=== PATIENT | male | born 1955 | race Caucasian/White ===

== ENCOUNTER 2016-06-27 17:34 | Observation (INO) | payer OTHER ==
[~2016-06-27] VITALS: Ht 182.9 cm; Wt 142.1 kg
[2016-06-27] VITALS (7 sets, daily range): BP systolic 74–161; BP diastolic 46–81; PULSE 62–84; RESP 14–21; O2SAT 93–99
[2016-06-27 17:52] LABS: BASOPHILS % (AUTO) 0.6 % (0-3); EOSINOPHILS % (AUTO) 4.9 % (0-5); MONOCYTES % (AUTO) 10.7 % (4-12); Mean Corpuscular Hemoglobin 28.2 pg (27.0-35.0); Mean Corpuscular Volume 83.1 fL (81-100); NEUTROPHILS % (AUTO) 58.7 % (40-74); Platelet Count 209 bil/L (150-400)
--- NOTE | 2016-06-27 18:07 | ED.REPORT ---
HPI-Dyspnea / Wheezing Date of Service Jun 27, 2016 ED Provider: Sergio Magdaleno DO A 60 year old male with a history of previously smoking and possible COPD is referred to the ED from Urgent Care due to a productive cough and shortness of breath. The pt has been experiencing these symptoms for six days, though this is a frequent condition. Diaphoresis was noted in Urgent Care, and the pt was given aspirin and a DuoNeb. The pt smoked for many years before quitting. He denies any history of blood clot, recent surgery, or recent travel. Nursing Notes Stated Complaint: COUGH Chief Complaint: Respiratory Distress Nursing Notes Reviewed: Yes Allergies: Coded Allergies: No Known Allergies (Unverified , 06/27/16) Scheduled Aspirin Chew (Aspirin Chew) 81 Mg Chew 81 MG PO DAILY Dextroamphetamine/Amphetamine ER (Adderall XR) 30 Mg Capsule 30 MG PO BIDWM Escitalopram Oxalate (Escitalopram Oxalate) 10 Mg Tablet 10 MG PO DAILY Fexofenadine (Fexofenadine) 180 Mg Tablet 180 MG PO DAILY Guaifenesin (Mucinex) 600 Mg Tablet.er 600 MG PO DAILYWD Omeprazole (Omeprazole) 20 Mg Capsule.dr 20 MG PO QAM General Time Seen by MD: 18:06 Chief Complaint Cough Hx Obtained From: Patient Arrived By: Walk-in Sudden in Onset?: No Onset Occurred: 6 days ago Symptom Duration: Since onset Recent Healthcare: No recent hospitalization, Recent doctor visit Similar Sx Previous: Yes Past Medical History Past Medical History possible COPD Past Surgical History nasal surgery Smoking History Unknown if Ever Smoker Social History Alcohol Use: "Social" Other Social History: Good social support, Ambulatory Status Independent Review of Systems Respiratory: Reports: Prod cough, clear, Shortness of breath Cardiovascular: Denies: Chest pain Musculoskeletal: Denies: Back pain, Neck pain Skin: Reports Diaphoresis, Denies Rash Complete sys rev & neg: except as marked. GI: Denies: Abdominal pain Physical Exam Initial Vital Signs Vital Signs (First) Date Time Temp Pulse Resp B/P Pulse Ox O2 Delivery O2 Flow Rate FiO2 06/27/16 17:38 37.3 68 14 139/71 93 Room Air Initial VS: Reviewed General/Constitutional: Awake, Alert, No acute distress Appearance / Presentation: Positive: Obese Neck: Atraumatic, Supple, Full range of motion Respiratory / Chest: Atraumatic, Breath sounds = bilat, No respiratory distress inspiratory and expiratory wheezing Cardiovascular: Heart rate NL, Regular rhythm, Heart sounds NL ENT: Atraumatic, Airway patent, Mucous membranes moist Abdomen: Atraumatic, Soft, Non-tender Back: Atraumatic, Full range of motion Lower Extremity / Pelvis / MS: Atraumatic, Full range of motion, No edema Skin: Atraumatic, Color NL, No rash, Warm forehead is diaphoretic Neurologic: Oriented X3, Speech NL, No motor deficits, No sensory deficits Head / Eyes: Atraumatic, Normocephalic, PERRL, EOMI Upper Extremity / MS: Atraumatic, Full range of motion, No edema Psychiatric: Affect NL, Mood NL Interpretation & Diagnostics Interpretation & Diagnostics: Angiography CT: IMPRESSION: No pulmonary embolism. Widespread bilateral ill-defined small nodularity and groundglass attenuation most likely representing infectious/inflammatory etiology. Differential includes aspiration pneumonitis, atypical/viral pneumonia, among other possibilities. Recommend followup with noncontrast chest CT after treatment to exclude early metastatic pulmonary nodules. Borderline enlarged bilateral hilar and mediastinal lymph nodes, nonspecific finding. Recommend clinical correlation. Incidental cholelithiasis. Dictated by: Saúl Diez M.D. on 06/27/2016 at 20:14 Approved by: Súal Diez M.D. on 06/27/2016 at 20:22 Lab Results Interpretation Result Diagram: 06/27/16 1741 06/27/16 1741 Test 06/27/16 17:41 06/27/16 18:36 White Blood Count 4.9th/mm3 (3.8-10.1) Red Blood Count 5.43mil/mm3 (4.40-5.80) Hemoglobin 15.3g/dL (13.8-17.2) Hematocrit 45.1% (41.0-50.0) Mean Corpuscular Volume 83.1fL (81-100) Mean Corpuscular Hemoglobin 28.2pg (27.0-35.0) Mean Corpuscular Hemoglobin Concent 33.9% (32.0-37.0) Red Cell Distribution Width 13.4% (12.3-15.4) Platelet Count 209bil/L (150-400) Neutrophils (%) (Auto) 58.7% (40-74) Lymphocytes (%) (Auto) 24.9% (14-46) Monocytes (%) (Auto) 10.7% (4-12) Eosinophils (%) (Auto) 4.9% (0-5) Basophils (%) (Auto) 0.6% (0-3) Sodium Level 137mEq/L (134-144) Potassium Level 4.0mEq/L (3.5-5.2) Chloride Level 98mEq/L (97-108) Carbon Dioxide Level 22mmol/L (18-29) Blood Urea Nitrogen 23mg/dL (8-27) Creatinine 0.86mg/dL (0.76-1.27) Estimat Glomerular Filtration Rate 96mL/min (>59) Glucose Level 162mg/dL (60-99) Calcium Level 9.2mg/dL (8.5-10.1) Magnesium Level 1.9mg/dL (1.6-2.6) Total Bilirubin 0.8mg/dL (0.0-1.2) Aspartate Amino Transf (AST/SGOT) 33U/L (0-50) Alanine Aminotransferase (ALT/SGPT) 26U/L (0-44) Alkaline Phosphatase 91U/L (25-160) Troponin T < 0.010ug/L (0.0-0.011) Total Protein 7.4g/dL (6.4-8.4) Albumin 4.2g/dL (3.4-5.0) D-Dimer 0.7mg/L (<0.50) Pro-B-Type Natriuretic Peptide 47.11pg/mL (0-210) Procalcitonin 0.16ng/mL (0.00-0.08) Pulse Oximetry Interpretation Pulse Oximetry Interpretation: 93% on room air ECG Interpretation ECG Interpretation: normal sinus rhythm with a rate of 67 Time: 17:48 Interpreted by: ED physician X-Ray Chest Interpretation Chest Xray Interpretation: IMPRESSION: No acute disease Dictated by: Saúl Diez M.D. on 06/27/2016 at 19:17 Approved by: Saúl Diez M.D. on 06/27/2016 at 19:18 Interpretation / Wet Read by: Interpret - Radiologist Re-Eval/Medical Decision Re-Evaluation/Progress #1: Time of Eval: 19:19 Patient Status: Condition improved Re-Evaluation/Progress Note: Pt rechecked, who is resting comfortably. He is informed of the plan for a CT scan. The pt agrees with the plan. Re-Evaluation/Progress #2: Time of Eval: 20:33 Re-Evaluation/Progress Note: Pt rechecked, who is still wheezing. His oxygen sat is 90. CT results are discussed. Re-Evaluation/Progress #3: Time of Eval: 20:56 Re-Evaluation/Progress Note: Pt rechecked, who is diaphoretic and continues wheezing. The plan for admission is discussed. The pt understands and agrees with the plan. All questions are addressed at this time. Consultation : Referral / Consult Name: Cade Renee MD Consulted With: Hospitalist Call Returned at: 21:48 Paralegal Instructor: Agrees with eval, Agrees with plan, Accepts admit Note: Spoke with Dr. Renee, hospitalist, regarding pt's case. Dr. Renee agrees with the evaluation and agrees to admit the pt. Counseled Regarding: Diagnosis, Lab results, Need for admission Discharge & Departure Impression: Primary Impression: Pneumonia Pneumonia type: due to unspecified organism Laterality: bilateral Lung location: unspecified part of lung Qualified Code: J18.9 - Pneumonia, unspecified organism Additional Impression: Bronchospasm Disposition: ADMITTED TO HOSPITAL Discharge Condition All VS Reviewed: Yes Condition: Stable Referrals: [facility] Trung Attestation Portions of this note were transcribed by Kashif Casiano. I, Dr. Magdaleno personally performed the history, physical exam and medical decision-making; I reviewed and confirmed the accuracy of the information in the transcribed note. Signed by: Trung Dawson, 06/27/2016 and 2153. copies to: [facility] Sergio Magdaleno DO Jun 27, 2016 18:07 KASHIF CASIANO Jun 27, 2016 18:15
[2016-06-27 18:32] LABS: Magnesium 1.9 mg/dL (1.6-2.6)
[2016-06-27 18:33] LABS: TROPONIN T < 0.010 ug/L (0.0-0.011)
[2016-06-27] MEDS ORDERED: MethylprednisoLONE Sodium Succinate 62.5 mg/mL 2 mL Inj IVPUSH ONE (18:40)
[2016-06-27] MEDS ORDERED: Albuterol-Ipratropium 3 mL Inhalation Solution NEB ONE (18:40)
--- NOTE | 2016-06-27 19:19 | DRSVH ---
PROCEDURE: X-RAY CHEST, TWO VIEWS ([id number]) INDICATIONS: shortness of breath TECHNIQUE: 2 views of the chest were acquired. COMPARISON: None. FINDINGS: Surgical changes and devices: None. Lungs and pleura: No pleural effusions or pneumothorax. Lungs are clear. Mediastinum: Mediastinal contours are normal. Heart size is normal. Bones and chest wall: No suspicious bony abnormalities. Soft tissues appear unremarkable. IMPRESSION: No acute disease Dictated by: Saúl Diez M.D. on 06/27/2016 at 19:17 Approved by: Saúl Diez M.D. on 06/27/2016 at 19:18
--- NOTE | 2016-06-27 20:22 | DRSVH ---
PROCEDURE: CT ANGIO CHEST PULMONARY EMBOLISM ([id number]) INDICATIONS: respiratory distress, elevated ddimer TECHNIQUE: After the administration of intravenous contrast, 2 mm thick sections acquired from the pulmonary api guerline to the posterior costophrenic angles. 3-dimensional maximum intensity projection (MIP) coronal a nd sagittal reformats were then acquired through the thorax. For radiation dose reduction, the follo wing was used: automated exposure control, adjustment of mA and/or kV according to patient size. COMPARISON: None. FINDINGS: Image quality: Excellent. Pulmonary arteries: Pulmonary arteries are normal in size, and demonstrate no intraluminal filling d efects to suggest central pulmonary embolism. Lungs and pleura: Bilateral widespread ill-defined small nodularity and groundglass opacities through out the lung bases in addition to the superior segments of the left and right lower lobes. No definit e focal consolidation identified. Central airways appear grossly patent. No pleural effusion or pneum othorax. There is central airway thickening Mediastinum: Heart size is normal, without pericardial effusion. Shotty bilateral hilar lymph nodes , and subcarinal borderline enlarged nodes, nonspecific. Thoracic aorta is normal in caliber and enhancement. Esophagus is normal in caliber, without hiatal hernia. Bones and chest wall: No suspicious bony lesions. Ribs and thoracic spine appear intact throughout. Thyroid gland negative. No axillary or supraclavicular adenopathy. Abdomen: Incidentally noted multiple less than 5 mm gallstones without other CT evidence of acute cho lecystitis. IMPRESSION: No pulmonary embolism. Widespread bilateral ill-defined small nodularity and groundglass attenuation most likely representin g infectious/inflammatory etiology. Differential includes aspiration pneumonitis, atypical/viral pneu monia, among other possibilities. Recommend followup with noncontrast chest CT after treatment to exc lude early metastatic pulmonary nodules. Borderline enlarged bilateral hilar and mediastinal lymph nodes, nonspecific finding. Recommend clini cheryl correlation. Incidental cholelithiasis. Dictated by: Saúl Diez M.D. on 06/27/2016 at 20:14 Approved by: Saúl Diez M.D. on 06/27/2016 at 20:22
[2016-06-27] MEDS ORDERED: cefTRIAXone Inj 2,000 MG in Dextrose 5% Minibag Plus 50 ML IV ONE (20:30)
[2016-06-27] MEDS ORDERED: Albuterol 2.5 mg/3 mL Inhalation Solution NEB ONE ×2 (21:01)
[2016-06-27] MEDS ORDERED: Alum-Mag Hydrox-Simeth 30 mL Suspension PO PRN (22:25)
[2016-06-27] MEDS ORDERED: Ondansetron 2 mg/mL 2 mL Inj IVPUSH PRN (22:25)
[2016-06-27] MEDS ORDERED: Albuterol-Ipratropium 3 mL Inhalation Solution NEB PRN (22:25)
[2016-06-27] MEDS ORDERED: Polyethylene Glycol (PEG) 17 Gm Powder PO PRN (22:25)
[2016-06-27] MEDS ORDERED: AMPH30CA5 PO (22:40)
[2016-06-27] MEDS ORDERED: FEXO-106 PO (22:41)
[2016-06-27] MEDS ORDERED: ESCI10TA52 PO (22:41)
[2016-06-27] MEDS ORDERED: ESCI5SOL4 PO (22:41)
[2016-06-27] MEDS ORDERED: ASPI81TA3 PO (22:42)
[2016-06-27] MEDS ORDERED: GUAI600T2 PO (22:42)
[2016-06-27] MEDS ORDERED: OMEP20CA11 PO (22:42)
[2016-06-28] VITALS (9 sets, daily range): BP systolic 163–191; BP diastolic 53–86; PULSE 67–82; RESP 16–22; O2SAT 91–98
[2016-06-28] MEDS ORDERED: 0.9% Sodium Chloride 1,000 ML IV ONE (00:45)
[2016-06-28] MEDS: 0.9% Sodium Chloride 1,000 ML IV SCH ×2 (02:35→12:04)
--- NOTE | 2016-06-28 04:18 | PCM.HPMED ---
Subjective Date of Service Jun 27, 2016 Primary Provider: Admitting Physician: Cade Renee MD Primary Care Physician: Jaycob Love DO Attending Physician: Cade Renee MD Admit Status: From the Emergency Department Chief Complaint: Shortness of breath, productive cough History of Present Illness: 60 year-old gentleman with history of seasonal allergies and extensive smoking history presents with diaphoresis, rigors, productive cough and SOB. This 60 year-old gentleman w/ 90 pack-year history (who is without a formal diagnosis of COPD) was in his normal state of health up until six days ago when he began to develop a cough, odynophagia, rhinorrhea, headache, and diffuse myalgias. The patient originally believed that he had influenza and chose to attempt convalescence with bedrest. Yesterday (06/26/2016), the patient noticed increased chills, rigors, wheezing, and productive cough. At the insistence of his , he reported to Urgent Care where he was advised to seek treatment at [facility]. In the Emergency Department, the patient was found to be wheezing, SOB, diaphoretic, and had a pulse oximetry of 93% on room air. CXR showed no acute disease process. A d-dimer was positive at 0.7. CTA chest did not reveal a pulmonary embolus but did show widespread bilateral ill-defined small nodularity and groundglass attenuation most likely representing infectious/ inflammatory etiology. Differential includes aspiration pneumonitis, atypical/ viral pneumonia and incidental cholelithiasis. The patients pulse oximetry improved to 99% after treatment with IV methylprednisolone and Duonebs; however , he is admitted for continued wheezing, SOB, and treatment of underlying pulmonary disease. The patient lives locally and denies any recent travel. His [id number] involves travel to many facilities and homes where he notes many individuals are displaying signs of flu-like illness. He denies any previous exposure to tuberculosis. The patient states that he is an active patient of Dr. Emery, who prescribes him antibiotics for recurrent cellulitis but is not currently active. Review of Systems: A comprehensive review of systems was conducted with the patient and found to be negative except as above in the History of Present Illness. Allergies Coded Allergies: No Known Allergies (Unverified , 06/27/16) Home Medications 1. Adderall 30 mg daily 2. Escitalopram 10 mg daily 3. Clindamycin 150 mg daily 4. Aspirin 81 mg 5. Olga 180 mg daily PMH 1. ADHD 2. Seasonal allergies 3. Lower leg cellulitis 4. Depression Surgical History 1. 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 External ears without defect. Pupils equal, round, and reactive to light and accommodation. Anicteric sclerae, moist conjunctivae, and no lid lag. Oropharynx free of erythema and cobble stoning with moist mucosa. Neck: Supple with full range of motion. No jugular venous distension. No lymphadenopathy or thyromegaly. Cardiovascular: Regular rate and rhythm with no murmurs, rubs, or gallops appreciated Pulmonary: Diffuse inspiratory and expiratory wheezes, or rhonchi. Normal respiratory effort with no use of accessory muscles. Abdomen: Bowel tones present. Soft, nontender,protuberant, nondistended. No hepatosplenomegaly or masses appreciated. Extremities: No clubbing, cyanosis, edema, or lymphadenopathy appreciated. Skin: Normal temperature, turgor, and texture; no rash, ulcers, or subcutaneous nodules appreciated. Neurological: Cranial nerves grossly intact. Normal muscle strength, tone, and bulk. No gait impairment. Psychiatric: Normal mood and affect. Alert and oriented to person, place, and time. Lab and Diagnostics Result Diagram: 06/27/16174006/27/161740 X-Rays, CTs and MRIs PROCEDURE: CT ANGIO CHEST PULMONARY EMBOLISM ([id number]) INDICATIONS: respiratory distress, elevated ddimer TECHNIQUE: After the administration of intravenous contrast, 2 mm thick sections acquired from the pulmonary apices to the posterior costophrenic angles. 3-dimensional maximum intensity projection (MIP) coronal and sagittal reformats were then acquired through the thorax. For radiation dose reduction, the following was used: automated exposure control, adjustment of mA and/or kV according to patient size. COMPARISON: None. FINDINGS: Image quality: Excellent. Pulmonary arteries: Pulmonary arteries are normal in size, and demonstrate no intraluminal filling defects to suggest central pulmonary embolism. Lungs and pleura: Bilateral widespread ill-defined small nodularity and groundglass opacities throughout the lung bases in addition to the superior segments of the left and right lower lobes. No definite focal consolidation identified. Central airways appear grossly patent. No pleural effusion or pneumothorax. There is central airway thickening Mediastinum: Heart size is normal, without pericardial effusion. Shotty bilateral hilar lymph nodes, and subcarinal borderline enlarged nodes, nonspecific. Thoracic aorta is normal in caliber and enhancement. Esophagus is normal in caliber, without hiatal hernia. Bones and chest wall: No suspicious bony lesions. Ribs and thoracic spine appear intact throughout. Thyroid gland negative. No axillary or supraclavicular adenopathy. Abdomen: Incidentally noted multiple less than 5 mm gallstones without other CT evidence of acute cholecystitis. IMPRESSION: No pulmonary embolism. Widespread bilateral ill-defined small nodularity and groundglass attenuation most likely representing infectious/inflammatory etiology. Differential includes aspiration pneumonitis, atypical/viral pneumonia, among other possibilities. Recommend followup with noncontrast chest CT after treatment to exclude early metastatic pulmonary nodules. Borderline enlarged bilateral hilar and mediastinal lymph nodes, nonspecific finding. Recommend clinical correlation. Incidental cholelithiasis. Dictated by: Saúl Diez M.D. on 06/27/2016 at 20:14 PROCEDURE: X-RAY CHEST, TWO VIEWS ([id number]) IMPRESSION: No acute disease Dictated by: Saúl Diez M.D. on 06/27/2016 at 19:17 Assessment & Plan 60 year-old gentleman with history of seasonal allergies and extensive smoking history presents with diaphoresis, rigors, productive cough and SOB found to have. 1. Probable atypical pneumonia, present on admission, acute - CURB-65 score of 1 shows 2.7% 30 day mortality, PSI/Port score (without ABG values) Shows Risk Class II with less than 1% mortality - Procalcitonin 0.16, repeat in a.m. - Methylpred Sodium and DuoNeb in ED, Continue DuoNeb QID while awake - Prednisone 40 mg daily - Ceftriaxone 2 g IV every 24 hours - Azithromycin 500 mg by mouth daily - Continue Mucinex - Rapid flu in the emergency department negative - Respiratory viral PCR, urine strep pneumo and Legionella antigens, sputum culture, MRSA nasal screen ordered. - Recommend follow-up with non contrast CT in outpatient setting once pneumonia is cleared to rule out malignancy as cause for CT findings. 2. Lactic acidosis, present on admission, acute - Initial lactic acid 4.1, trending every 2 hours - 1 L bolus normal saline given, and normal saline continuous effusion 100 mL per hour - Oxygen by nasal cannula 3. History of lower leg cellulitis, not currently active - Patient prescribed prophylactic dose of clindamycin by Dr. Emery of infectious disease, he has not been taking this recently. - After antibiotic treatment for pneumonia is complete patient should resume this medication. Chronic conditions Seasonal Allergies - Continue Olga like medication Depression - Continue escitalopram daily ADHD - Continue Adderall daily Musculoskeletal pain - Continue Naproxen when necessary Acetaminophen or naproxen for mild pain when necessary. Bowel regimen Senna and MiraLAX PRN. Zofran when necessary for nausea and vomiting. Patient lives with in [place], [place] and will likely return home upon discharge. Patient is admitted under inpatient status with expected length of stay greater than 2 midnights due to severity of presenting symptoms, risk of adverse event, and complexity of treatment plan. Pain Evaluation: Adequate Pain Control GI Prophylaxis: Not indicated VTE Prophylaxis: Sub-Q Enoxaparin VTE Mechanical Devices: Intermittant Pneumatic CD Resuscitation Status: CPR: Attempt Resuscitation Attending Statement The patient was seen and examined together with Dr. Martin on 06/27 and I agree with the history, exam and plan as outlined in the note above. copies to: Jaycob Love Erika R DO Jun 27, 2016 22:21 Cade Renee MD Jun 28, 2016 05:18
--- NOTE | 2016-06-28 05:00 | NUR ---
Admit note: Pt arrived from the ER via wheelchair. Ambulating in room independently. Reports shortness of breath with activity, RA SpO2 was 92%; denies SOB at rest. Alert and oriented x3. Critical Lactic came back at 4.1. MD notified, pt placed on tele, SR 70-80s. 1L NS fluid bolus administered, NS at 100mls/hr. Pt was placed on 2L of O2. Lactic did increase to 4.9, MD aware; next draw lactic did start to decline. Pt oriented to room and call light. Using call light for needs.
[2016-06-28] MEDS: predniSONE 20 mg Tablet PO SCH (08:57)
[2016-06-28] MEDS: Pantoprazole 40 mg ER24 Tablet PO SCH (08:57)
[2016-06-28] MEDS: Amphetamines (Mixed) XR 10 mg ER24 Capsule PO SCH ×2 (09:17→17:08)
--- NOTE | 2016-06-28 10:55 | PCM.PNMED ---
Subjective Date of Service Jun 28, 2016 Subjective Reports he is less SOB this morning, but still wheezy. Denies any fevers, CP, or dizziness. Exam Vital Signs Vital Sign - Last Date Time Temp Pulse Resp B/P Pulse Ox O2 Delivery O2 Flow Rate FiO2 06/28/16 05:15 36.6 67 18 163/86 96 Nasal Cannula 2.00 Intake and Output 06/27/16 06/27/16 06/28/16 Cumulative From/Thru 15:00 23:00 07:00 06/27/16 17:38 - 06/28/16 06:25 Intake Total 970 ml 970 ml Output Total 600 ml 600 ml Balance 370 ml 370 ml Intake Oral 920 ml 920 ml IV Total 50 ml 50 ml Output Urine Total 600 ml 600 ml # Bowel Movements 0 0 Exam General: No acute distress, well-developed, well-nourished, appropriately interactive HEENT: PERRLA Cardiovascular: Regular rate and rhythm with no murmurs, rubs, or gallops appreciated Pulmonary: Moderate diffuse wheezing bilaterally, audible upper resp wheezing Abdomen: Bowel tones present. Soft, nontender,protuberant, nondistended. No hepatosplenomegaly or masses appreciated. Extremities: No clubbing, cyanosis, edema, or lymphadenopathy appreciated. Skin: Normal temperature, turgor, and texture; no rash, ulcers, or subcutaneous nodules appreciated. Neurological: Cranial nerves grossly intact. Non focal exam. Psychiatric: Normal mood and affect. Alert and oriented to person, place, and time. IVs and Medications Medications Reviewed: Medications were reviewed in detail Lab and Diagnostics Result Diagram: 06/27/16174006/27/161740 X-Rays, CTs and MRIs PROCEDURE: CT ANGIO CHEST PULMONARY EMBOLISM ([id number]) INDICATIONS: respiratory distress, elevated ddimer TECHNIQUE: After the administration of intravenous contrast, 2 mm thick sections acquired from the pulmonary apices to the posterior costophrenic angles. 3-dimensional maximum intensity projection (MIP) coronal and sagittal reformats were then acquired through the thorax. For radiation dose reduction, the following was used: automated exposure control, adjustment of mA and/or kV according to patient size. COMPARISON: None. FINDINGS: Image quality: Excellent. Pulmonary arteries: Pulmonary arteries are normal in size, and demonstrate no intraluminal filling defects to suggest central pulmonary embolism. Lungs and pleura: Bilateral widespread ill-defined small nodularity and groundglass opacities throughout the lung bases in addition to the superior segments of the left and right lower lobes. No definite focal consolidation identified. Central airways appear grossly patent. No pleural effusion or pneumothorax. There is central airway thickening Mediastinum: Heart size is normal, without pericardial effusion. Shotty bilateral hilar lymph nodes, and subcarinal borderline enlarged nodes, nonspecific. Thoracic aorta is normal in caliber and enhancement. Esophagus is normal in caliber, without hiatal hernia. Bones and chest wall: No suspicious bony lesions. Ribs and thoracic spine appear intact throughout. Thyroid gland negative. No axillary or supraclavicular adenopathy. Abdomen: Incidentally noted multiple less than 5 mm gallstones without other CT evidence of acute cholecystitis. IMPRESSION: No pulmonary embolism. Widespread bilateral ill-defined small nodularity and groundglass attenuation most likely representing infectious/inflammatory etiology. Differential includes aspiration pneumonitis, atypical/viral pneumonia, among other possibilities. Recommend followup with noncontrast chest CT after treatment to exclude early metastatic pulmonary nodules. Borderline enlarged bilateral hilar and mediastinal lymph nodes, nonspecific finding. Recommend clinical correlation. Incidental cholelithiasis. Dictated by: Saúl Diez M.D. on 06/27/2016 at 20:14 PROCEDURE: X-RAY CHEST, TWO VIEWS ([id number]) IMPRESSION: No acute disease Dictated by: Saúl Diez M.D. on 06/27/2016 at 19:17 Assessment & Plan 60 year-old gentleman with history of seasonal allergies and extensive smoking history presents with diaphoresis, rigors, productive cough and SOB found to have. 1. Probable atypical pneumonia, present on admission, acute - CURB-65 score of 1 shows 2.7% 30 day mortality, PSI/Port score (without ABG values) Shows Risk Class II with less than 1% mortality - Procalcitonin 0.16, repeat in a.m. - Methylpred Sodium and DuoNeb in ED, Continue DuoNeb QID while awake - Prednisone 40 mg daily - Ceftriaxone 2 g IV every 24 hours abd Azithromycin 500 mg by mouth daily started by admission team. Will discontinue if viral. - Continue Mucinex - Rapid flu in the emergency department negative - Respiratory viral PCR positive for Human Metapneumovirus 06/28 2. Lactic acidosis, present on admission, acute - Initial lactic acid 4.1, trending every 2 hours - 1 L bolus normal saline given, and normal saline continuous effusion 100 mL per hour - Oxygen by nasal cannula - Improving, continue to monitor until resolution 3. History of lower leg cellulitis, not currently active - Patient prescribed prophylactic dose of clindamycin by Dr. Emery of infectious disease, he has not been taking this recently. - After antibiotic treatment for pneumonia is complete patient should resume this medication. Chronic conditions Seasonal Allergies - Continue Olga like medication Depression - Continue escitalopram daily ADHD - Continue Adderall daily Musculoskeletal pain - Continue Naproxen when necessary Acetaminophen or naproxen for mild pain when necessary. Bowel regimen Senna and MiraLAX PRN. Zofran when necessary for nausea and vomiting. Patient lives with in [place], [place] and will likely return home upon discharge. Likely discharge home tomorrow if improving Pain Evaluation: Adequate Pain Control GI Prophylaxis: Not indicated VTE Prophylaxis: Sub-Q Enoxaparin VTE Mechanical Devices: Intermittant Pneumatic CD Resuscitation Status: CPR: Attempt Resuscitation Time spent 25 minutes Attending Statement I have seen and evaluated patient at bedside in addition to directly supervising care provided by resident physician. I agree with above documentation. Kevin Mendez DO Jun 28, 2016 07:59 Yeison Bledsoe DO Jun 28, 2016 14:15
--- NOTE | 2016-06-28 12:33 | NUR ---
Social Work-initial assessment: Data:EMR Reviewed. Pt is a 60 y/o male who was admitted on 06/27/16 for multilobar pneumonia per H&P. Pt's [place] is [employer] [place] and PCP is Jaycob Love DO. EMR reviewed. SW met with pt at bedside to discuss discharge planning, SW role explained. Pt is alert and oriented x3. Pt resides at home with in [place] where he remains independent with ADLs. Pt drives and does not use any DME. Pt has no HH or SNF history. SW discussed DPOA/ advanced directive, pt states that he has completed paperwork, SW requested a copy to be brought into the hospital. Per RN notes, pt has been up independent in his room. Pt's to provide transport home at discharge. SW provided phone number and plan on white board in room. No anticipated discharge needs. SW will continue to follow if needs arise. Assessment:Pt who is independent at baseline. Plan:Pt to discharge home when medically stable via POV. No anticipated discharge needs. SW will continue to follow if needs arise. ADWOA Winn
[2016-06-28] MEDS: Albuterol-Ipratropium 3 mL Inhalation Solution NEB SCH ×2 (15:37→19:48)
[2016-06-28] MEDS ORDERED: guaiFENesin 600 mg ER12 Tablet PO SCH (17:30)
[2016-06-28] MEDS ORDERED: Labetalol 5 mg/mL 4 mL Inj IVPUSH PRN (18:05)
--- NOTE | 2016-06-28 18:48 | NUR ---
Activity/shift note Pt remains on 2L via NC, denies any SOB/distress. CPOX at bedside has revealed 02 in high 90's all day. Pt ind with activity and tolerates well. He denies any pain/discomfort. Remains on isolation (droplet/contact), MRSA pending. Bed in lowest, locked position and call light in reach.
[2016-06-28] MEDS ORDERED: cefTRIAXone Inj 2,000 MG in Dextrose 5% Minibag Plus 50 ML IV SCH (21:00)
[2016-06-29] MEDS ORDERED: Albuterol-Ipratropium 3 mL Inhalation Solution NEB PRN (03:15)
[2016-06-29 03:29] VITALS: PULSE 70; RESP 16; O2SAT 96
[2016-06-29 05:56] VITALS: BP 120/66; PULSE 67; RESP 20; O2SAT 99
[2016-06-29] MEDS: Pantoprazole 40 mg ER24 Tablet PO SCH (06:21)
[2016-06-29 06:54] LABS: BASOPHILS % (AUTO) 0.4 % (0-3); EOSINOPHILS % (AUTO) 0.7 % (0-5); Mean Corpuscular Hemoglobin 28.1 pg (27.0-35.0); Mean Corpuscular Volume 84.5 fL (81-100); NEUTROPHILS % (AUTO) 71.8 % (40-74); Platelet Count 202 bil/L (150-400)
[2016-06-29] MEDS: Albuterol-Ipratropium 3 mL Inhalation Solution NEB SCH ×2 (08:47→13:47)
[2016-06-29 08:49] VITALS: PULSE 64; RESP 20; O2SAT 96
[2016-06-29] MEDS: predniSONE 20 mg Tablet PO SCH (09:13)
--- NOTE | 2016-06-29 09:17 | NUR ---
02 titration Pt on 2L this AM. Placed on RA, currently 96%. Pt denies feeling SOB. Pt educated on alerting staff if feeling SOB/anxious. He reports understanding. CPOX remains in place at bedside.
--- NOTE | 2016-06-29 13:28 | PCM.DIMED ---
Kevin Mendez DO 06/29/16 1328: Discharge Instructions Date of Service Jun 29, 2016 Dates of Hospitalization Jun 27, 2016 at 21:17 Discharge Diagnosis Discharge Diagnosis Human Metapneumovirus pneumonia Lactic acidosis History of lower leg cellulitis Seasonal Allergies Depression H/o ADHD Medication Instructions Please continue taking the Prednisone as instructed. Continue using the inhalers as instructed. Stop taking your Adderall because it is causing you to have very high blood pressures. Drink at least 2 liters of water daily. Diet No restrictions Activity No restrictions Call your provider Fever or Chills, Vomitting, Excessive diarrhea, Weakness (unilateral) Patient Instructions Please take your medications as instructed Follow up with your PCP within 1 week. Follow-up Provider: Jaycob Love DO Follow-up with PCP in: 1 week Yeison Bledsoe DO 06/30/16 0750: Discharge Instructions Attending's Statement Read and agree Kevin Mendez DO Jun 29, 2016 13:28 Yeison Bledsoe DO Jun 30, 2016 07:50
[2016-06-29] MEDS ORDERED: PRED-508 PO (13:30)
[2016-06-29] MEDS ORDERED: ALBU8.5H2 INHALATION (13:30)
[2016-06-29] MEDS ORDERED: ZIT250 PO (13:30)
[2016-06-29 13:31] VITALS: BP 165/83; PULSE 68; RESP 20; O2SAT 96
[2016-06-29 13:48] VITALS: PULSE 96; RESP 20; O2SAT 96
--- NOTE | 2016-06-29 15:11 | NUR ---
DISCHARGE Pt dc'd home at 1500 this afternoon, ambulated off unit accompanied by . Vital signs stable, A&O, denies any pain and in no apparent distress. IV dc'd intact, all belongings returned. All instructions for diet, activity, medications, prescriptions and follow up reviewed with patient who reports understanding.
--- NOTE | 2016-06-30 19:35 | PCM.DC.MED ---
Discharge Summary Date of Service Jun 30, 2016 Dates of Hospitalization Date of Hospital Admission Jun 27, 2016 at 21:17 Date of Discharge: Jun 29, 2016 Providers: Admitting Physician: Cade Renee MD Primary Care Physician: Jaycob Love DO Attending Physician: Cade Renee MD Diagnosis at Time of Discharge Diagnosis at Time of Discharge Human Metapneumovirus pneumonia Lactic acidosis History of lower leg cellulitis Seasonal Allergies Depression H/o ADHD Procedures XRay, CTs & MRIs PROCEDURE: CT ANGIO CHEST PULMONARY EMBOLISM ([id number]) INDICATIONS: respiratory distress, elevated ddimer TECHNIQUE: After the administration of intravenous contrast, 2 mm thick sections acquired from the pulmonary apices to the posterior costophrenic angles. 3-dimensional maximum intensity projection (MIP) coronal and sagittal reformats were then acquired through the thorax. For radiation dose reduction, the following was used: automated exposure control, adjustment of mA and/or kV according to patient size. COMPARISON: None. FINDINGS: Image quality: Excellent. Pulmonary arteries: Pulmonary arteries are normal in size, and demonstrate no intraluminal filling defects to suggest central pulmonary embolism. Lungs and pleura: Bilateral widespread ill-defined small nodularity and groundglass opacities throughout the lung bases in addition to the superior segments of the left and right lower lobes. No definite focal consolidation identified. Central airways appear grossly patent. No pleural effusion or pneumothorax. There is central airway thickening Mediastinum: Heart size is normal, without pericardial effusion. Shotty bilateral hilar lymph nodes, and subcarinal borderline enlarged nodes, nonspecific. Thoracic aorta is normal in caliber and enhancement. Esophagus is normal in caliber, without hiatal hernia. Bones and chest wall: No suspicious bony lesions. Ribs and thoracic spine appear intact throughout. Thyroid gland negative. No axillary or supraclavicular adenopathy. Abdomen: Incidentally noted multiple less than 5 mm gallstones without other CT evidence of acute cholecystitis. IMPRESSION: No pulmonary embolism. Widespread bilateral ill-defined small nodularity and groundglass attenuation most likely representing infectious/inflammatory etiology. Differential includes aspiration pneumonitis, atypical/viral pneumonia, among other possibilities. Recommend followup with noncontrast chest CT after treatment to exclude early metastatic pulmonary nodules. Borderline enlarged bilateral hilar and mediastinal lymph nodes, nonspecific finding. Recommend clinical correlation. Incidental cholelithiasis. Dictated by: Saúl Diez M.D. on 06/27/2016 at 20:14 PROCEDURE: X-RAY CHEST, TWO VIEWS ([id number]) IMPRESSION: No acute disease Dictated by: Saúl Diez M.D. on 06/27/2016 at 19:17 Brief History 60 year-old gentleman with history of seasonal allergies and extensive smoking history presents with diaphoresis, rigors, productive cough and SOB. This 60 year-old gentleman w/ 90 pack-year history (who is without a formal diagnosis of COPD) was in his normal state of health up until six days ago when he began to develop a cough, odynophagia, rhinorrhea, headache, and diffuse myalgias. The patient originally believed that he had influenza and chose to attempt convalescence with bedrest. Yesterday (06/26/2016), the patient noticed increased chills, rigors, wheezing, and productive cough. At the insistence of his , he reported to Urgent Care where he was advised to seek treatment at [facility]. In the Emergency Department, the patient was found to be wheezing, SOB, diaphoretic, and had a pulse oximetry of 93% on room air. CXR showed no acute disease process. A d-dimer was positive at 0.7. CTA chest did not reveal a pulmonary embolus but did show widespread bilateral ill-defined small nodularity and groundglass attenuation most likely representing infectious/ inflammatory etiology. Differential includes aspiration pneumonitis, atypical/ viral pneumonia and incidental cholelithiasis. The patients pulse oximetry improved to 99% after treatment with IV methylprednisolone and Duonebs; however , he is admitted for continued wheezing, SOB, and treatment of underlying pulmonary disease. The patient lives locally and denies any recent travel. His [id number] involves travel to many facilities and homes where he notes many individuals are displaying signs of flu-like illness. He denies any previous exposure to tuberculosis. The patient states that he is an active patient of Dr. Emery, who prescribes him antibiotics for recurrent cellulitis but is not currently active. Hospital Course 60 year-old gentleman with history of seasonal allergies and extensive smoking history presents with diaphoresis, rigors, productive cough and SOB found to have. Found to have Human metapneumovirus pneumonia. Treated with Prednisone and inhalers, then sent home with Prednisone burst and inhalers for symptomatic tx. 1. Probable atypical pneumonia, present on admission, acute - CURB-65 score of 1 shows 2.7% 30 day mortality, PSI/Port score (without ABG values) Shows Risk Class II with less than 1% mortality - Procalcitonin 0.16, repeat in a.m. - Methylpred Sodium and DuoNeb in ED, Continue DuoNeb QID while awake - Prednisone 40 mg daily - Ceftriaxone 2 g IV every 24 hours abd Azithromycin 500 mg by mouth daily started by admission team. Will discontinue if viral. - Continue Mucinex - Rapid flu in the emergency department negative - Respiratory viral PCR positive for Human Metapneumovirus 06/28 2. Lactic acidosis, present on admission, acute - Initial lactic acid 4.1, trending every 2 hours - 1 L bolus normal saline given, and normal saline continuous effusion 100 mL per hour initially 3. History of lower leg cellulitis, not currently active - Patient prescribed prophylactic dose of clindamycin by Dr. Emery of infectious disease, he has not been taking this recently. - After antibiotic treatment for pneumonia is complete patient should resume this medication. Chronic conditions Seasonal Allergies - Continue Olga like medication Depression - Continue escitalopram daily ADHD - Continue Adderall daily Musculoskeletal pain - Continue Naproxen when necessary Exam Vital Signs (Last) Date Time Temp Pulse Resp B/P Pulse Ox O2 Delivery O2 Flow Rate FiO2 06/29/16 13:48 96 20 96 Room Air 06/29/16 13:31 36.7 165/83 06/29/16 05:56 2.00 Exam General: No acute distress, well-developed, well-nourished, appropriately interactive HEENT: PERRLA Cardiovascular: Regular rate and rhythm with no murmurs, rubs, or gallops appreciated Pulmonary: Moderate diffuse wheezing bilaterally, audible upper resp wheezing Abdomen: Bowel tones present. Soft, nontender,protuberant, nondistended. No hepatosplenomegaly or masses appreciated. Extremities: No clubbing, cyanosis, edema, or lymphadenopathy appreciated. Skin: Normal temperature, turgor, and texture; no rash, ulcers, or subcutaneous nodules appreciated. Neurological: Cranial nerves grossly intact. Non focal exam. Psychiatric: Normal mood and affect. Alert and oriented to person, place, and time. Test 06/27/16 05:17 06/27/16 17:41 06/27/16 18:36 06/28/16 09:55 Urine Legionella pneumophilia Ag Negative (Negative) Magnesium Level 1.9mg/dL (1.6-2.6) Total Bilirubin 0.8mg/dL (0.0-1.2) Aspartate Amino Transf (AST/SGOT) 33U/L (0-50) Alanine Aminotransferase (ALT/SGPT) 26U/L (0-44) Alkaline Phosphatase 91U/L (25-160) Troponin T < 0.010ug/L (0.0-0.011) Total Protein 7.4g/dL (6.4-8.4) Albumin 4.2g/dL (3.4-5.0) D-Dimer 0.7mg/L (<0.50) Pro-B-Type Natriuretic Peptide 47.11pg/mL (0-210) C-Reactive Protein 1.5mg/dL (0.0-0.5) Procalcitonin 0.14ng/mL (0.00-0.08) Test 06/28/16 20:15 06/29/16 06:20 Lactic Acid Level 2.6mmol/L (0.4-2.0) White Blood Count 7.7th/mm3 (3.8-10.1) Red Blood Count 4.84mil/mm3 (4.40-5.80) Hemoglobin 13.6g/dL (13.8-17.2) Hematocrit 40.9% (41.0-50.0) Mean Corpuscular Volume 84.5fL (81-100) Mean Corpuscular Hemoglobin 28.1pg (27.0-35.0) Mean Corpuscular Hemoglobin Concent 33.3% (32.0-37.0) Red Cell Distribution Width 13.4% (12.3-15.4) Platelet Count 202bil/L (150-400) Neutrophils (%) (Auto) 71.8% (40-74) Lymphocytes (%) (Auto) 20.6% (14-46) Monocytes (%) (Auto) 6.0% (4-12) Eosinophils (%) (Auto) 0.7% (0-5) Basophils (%) (Auto) 0.4% (0-3) Sodium Level 139mEq/L (134-144) Potassium Level 4.4mEq/L (3.5-5.2) Chloride Level 102mEq/L (97-108) Carbon Dioxide Level 23mmol/L (18-29) Blood Urea Nitrogen 26mg/dL (8-27) Creatinine 0.72mg/dL (0.76-1.27) Estimat Glomerular Filtration Rate 118mL/min (>59) Glucose Level 169mg/dL (60-99) Calcium Level 8.5mg/dL (8.5-10.1) Discharge Medications Discharge Medications Albuterol HFA (Proair HFA) 8.5 Gm Hfa.aer.ad 2 PUFFS INHALATION Q4H Prescribed by: NAYAN CHATMAN DO Aspirin Chew (Aspirin Chew) 81 Mg Chew 81 MG PO DAILY (Reported) Azithromycin (Zithromax) 250 Mg Tablet 250 MG PO DAILY Prescribed by: NAYAN CHATMAN DO Escitalopram Oxalate (Escitalopram Oxalate) 10 Mg Tablet 10 MG PO DAILY ( Reported) Fexofenadine (Fexofenadine) 180 Mg Tablet 180 MG PO DAILY (Reported) Guaifenesin (Mucinex) 600 Mg Tablet.er 600 MG PO DAILYWD (Reported) Omeprazole (Omeprazole) 20 Mg Capsule.dr 20 MG PO QAM (Reported) Prednisone (Deltasone) 20 Mg Tablet 40 MG PO DAILY Prescribed by: NAYAN CHATMAN DO Additional med instructions Please continue taking the Prednisone as instructed. Continue using the inhalers as instructed. Stop taking your Adderall because it is causing you to have very high blood pressures. Drink at least 2 liters of water daily. Followup Plan Disposition: Home Discharge Diet: No restrictions Discharge Activity: No restrictions Patient Instructions Please take your medications as instructed Follow up with your PCP within 1 week. Follow-up Provider: Jaycob Love DO Follow-up with PCP in: 1 week Time spent 40 minutes Attending Statement I have seen and evaluated patient at bedside in addition to directly supervising care provided by resident physician. I agree with above documentation. copies to: Jaycob Love Hong D DO Jun 30, 2016 19:35 Yeison Bledsoe DO Jul 01, 2016 15:55
== END 2016-06-29 15:01 | disposition home or self-care (01) ==
LOC: EDBD 17:34 → SED 17:34 → INTOOBSV 21:17 → OBSVTOIN 21:17 → MPC 21:17
PROVIDERS: ADMIT Hospitalist; ATTEND Hospitalist
DX: J12.3 Human metapneumovirus pneumonia (principal); E87.2 Acidosis; J30.2 Other seasonal allergic rhinitis; F32.9 Major depressive disorder, single episode, unspecified; J98.01 Acute bronchospasm; F90.9 Attention-deficit hyperactivity disorder, unspecified type; K80.20 Calculus of gallbladder without cholecystitis without obstruction; Z87.891 Personal history of nicotine dependence; Z79.82 Long term (current) use of aspirin
CPT/HCPCS: 36415; 71020; 71275; 80048; 80053; 82308; 83605; 83735; 83880; 84484; 85025; 85379; 86140; 86403; 87070; 87081; 87205; 87449; 87633; 87804; 93005; 94640; 94644; 94664; 96361; 96365; 96375; 99285; G0378; J0696; J1650; J2930; J7030; J7613; J7620; Q9967